=== PATIENT | male | born 1970 | race Caucasian/White ===

== ENCOUNTER 2021-06-08 21:16 | Emergency (ER) | payer OTHER ==
[~2021-06-08] VITALS: Ht 185.4 cm; Wt 114.6 kg
--- NOTE | 2021-06-08 22:39 | NUR ---
BUSINESS SEGMENT MANAGER: PT. TO ROOM FROM LOBBY AT THIS TIME.
[2021-06-08] MEDS ORDERED: SODIUM CHLORIDE FLUSH 10ML SYR IVF ONE (23:00)
[2021-06-08] MEDS ORDERED: MORPHINE SULFATE 4 MG/ML, 1ML IVPush PRN (23:00)
[2021-06-08] MEDS ORDERED: SODIUM CHLORIDE 0.9% 1,000ML IVBOLUS ONE (23:00)
[2021-06-08] MEDS ORDERED: ONDANSETRON 2MG/ML, 2ML IVPush ONE (23:00)
[2021-06-08 23:27] LABS: BASOPHILS % (AUTO) 1 % (0-1); EOSINOPHILS % (AUTO) 3 % (1-7); LYMPHOCYTES % (AUTO) 12 % (22-44); MEAN CORPUSCULAR HEMOGLOBIN 30.3 pg (27.5-34.5); MEAN CORPUSCULAR HGB CONC 34.7 g/dL (33.2-36.2); MEAN PLATELET VOLUME 7.8 fL (7.4-10.4); MONOCYTES % (AUTO) 7 % (2-9); NEUTROPHILS % (AUTO) 77 % (42-75); PLATELET COUNT 388 x10^3/uL (130-400); RED BLOOD COUNT 5.05 x10^6/uL (4.38-5.82); RED CELL DISTRIBUTION WIDTH 13.1 % (9.4-14.8)
[2021-06-08 23:38] LABS: ALANINE AMINOTRANSFERASE 30 U/L (12-78); ALBUMIN 3.8 g/dL (3.4-5.0); ANION GAP 4 mmol/L (5-15); CALCIUM 8.6 mg/dL (8.5-10.1); CHLORIDE 105 mmol/L (98-107)
[2021-06-08 23:40] LABS: ALKALINE PHOSPHATASE 66 U/L (45-117); BILIRUBIN,TOTAL 0.9 mg/dL (0.2-1.0); TOTAL PROTEIN 7.4 g/dL (6.4-8.2)
[2021-06-09] MEDS ORDERED: OMNIPAQUE 350 MG/ML, 75ML BOTTLE ONE (00:20)
[2021-06-09] MEDS ORDERED: ONDANSETRON 2MG/ML, 2ML ONE (00:52)
[2021-06-09] MEDS ORDERED: MORPHINE SULFATE 4 MG/ML, 1ML ONE (00:52)
[2021-06-09 01:46] VITALS: BP 172/94
== END 2021-06-09 02:00 | disposition home or self-care (01) ==
LOC: ED 23:36
DX: T18.128A Food in esophagus causing other injury, initial encounter (principal); K22.6 Gastro-esophageal laceration-hemorrhage syndrome; I10 Essential (primary) hypertension; E11.9 Type 2 diabetes mellitus without complications; X58.XXXA Exposure to other specified factors, initial encounter; Y93.89 Activity, other specified; Y92.89 Other specified places as the place of occurrence of the external cause; Y99.8 Other external cause status
CPT/HCPCS: 36415; 71046; 71260; 80053; 85025; 96361; 96374; 96375; 99285; J2270; J2405; J7030; Q9967